=== PATIENT | male | born 1945 | race Caucasian/White ===

== ENCOUNTER 2017-02-11 10:36 | Inpatient (IN) | payer OTHER ==
[~2017-02-11] VITALS: Ht 185.4 cm; Wt 106.1 kg
[2017-02-11 10:44] VITALS: BP 148/86
[2017-02-11 11:29] LABS: URINE BILIRUBIN NEGATIVE (Negative); URINE BLOOD 1+ (Negative); URINE CLARITY CLEAR; URINE COLOR YELLOW; URINE GLUCOSE-RANDOM* NEGATIVE (Negative); URINE KETONES NEGATIVE (Negative); URINE LEUKOCYTES-REFLEX TRACE (Negative); URINE NITRITE-REFLEX POSITIVE (Negative); URINE PROTEIN (DIPSTICK) TRACE (Negative)
[2017-02-11 11:31] LABS: HEMOGLOBIN 13.1 gm/dL (14.0-18.0); MCH 31.9 pg (26.0-34.0); MCHC 34.5 g/dL (28.0-37.0); MCV 92.4 fL (80.0-100.0); PLATELET COUNT 190 thou/uL (150-400); RBC 4.12 mil/uL (4.50-6.00); RDW 14.3 % (10.5-14.5); WBC 12.7 thou/uL (4.0-11.0)
[2017-02-11] MEDS ORDERED: MIRALAX17 GM PO (11:36)
[2017-02-11] MEDS ORDERED: PRINIVIL20 M1 PO (11:37)
[2017-02-11 11:40] LABS: BACTERIA-REFLEX >30 Many /HPF (None Seen); CASTS None Seen /LPF (None Seen); CRYSTALS None Seen /LPF (None Seen); SQUAMOUS None Seen /LPF (0-3)
[2017-02-11 11:42] LABS: URINE RBC 3-10 Few /HPF (0-2); URINE WBC-REFLEX 6-15 Few /HPF (0-5)
[2017-02-11 11:44] LABS: CALCIUM 9.2 mg/dL (8.5-10.1); CREATININE 1.1 mg/dL (0.7-1.3)
[2017-02-11 12:17] LABS: ABSOLUTE NEUTROPHILS 9.9 thou/uL (1.4-8.2); METAMYELOCYTES 1 %
[2017-02-11 18:42] VITALS: BP 146/74
[2017-02-11 20:00] VITALS: BP 145/60
[2017-02-11 20:50] VITALS: BP 178/71
[2017-02-12 03:43] VITALS: BP 160/58
[2017-02-12 06:20] LABS: HEMATOCRIT 33.5 % (42.0-52.0); HEMOGLOBIN 11.5 gm/dL (14.0-18.0); MCH 31.5 pg (26.0-34.0); MCHC 34.2 g/dL (28.0-37.0); MCV 92.3 fL (80.0-100.0); PLATELET COUNT 217 thou/uL (150-400); RBC 3.63 mil/uL (4.50-6.00); RDW 14.5 % (10.5-14.5); WBC 11.3 thou/uL (4.0-11.0)
[2017-02-12 06:32] LABS: CALCIUM 8.1 mg/dL (8.5-10.1); CREATININE 1.1 mg/dL (0.7-1.3); POTASSIUM 3.2 mmol/L (3.5-5.1)
[2017-02-12 07:40] VITALS: BP 150/79
[2017-02-12 07:56] VITALS: BP 139/86
[2017-02-12 07:59] LABS: ABSOLUTE NEUTROPHILS 8.9 thou/uL (1.4-8.2); ANISOCYTOSIS 1+; METAMYELOCYTES 3 %; POLYCHROMASIA OCCASIONAL
[2017-02-12 15:34] VITALS: BP 126/62
[2017-02-12 20:00] VITALS: BP 147/75
[2017-02-13 04:30] VITALS: BP 159/86
[2017-02-13 06:39] LABS: HEMATOCRIT 34.4 % (42.0-52.0); HEMOGLOBIN 11.9 gm/dL (14.0-18.0); MCH 32.1 pg (26.0-34.0); MCHC 34.5 g/dL (28.0-37.0); PLATELET COUNT 256 thou/uL (150-400); RBC 3.69 mil/uL (4.50-6.00); RDW 14.1 % (10.5-14.5); WBC 9.7 thou/uL (4.0-11.0)
[2017-02-13 07:00] LABS: CALCIUM 8.2 mg/dL (8.5-10.1); POTASSIUM 3.6 mmol/L (3.5-5.1)
[2017-02-13 07:34] VITALS: BP 177/81
[2017-02-13 09:46] LABS: ABSOLUTE NEUTROPHILS 6.2 thou/uL (1.4-8.2); ATYPICAL LYMPHS 2 %; METAMYELOCYTES 4 %; MYELOCYTES 1 %
[2017-02-13 09:47] LABS: ANISOCYTOSIS SLIGHT; POLYCHROMASIA OCCASIONAL
[2017-02-13 16:43] VITALS: BP 157/87
[2017-02-13] MEDS ORDERED: KEFLEX500 M1 PO (17:53)
[2017-02-13 18:07] VITALS: BP 157/87
== END 2017-02-13 18:47 | disposition home or self-care (01) | DRG 872 ==
LOC: ER 10:36 → 4E 12:30 → EROBS 12:30 → 4E 20:00
PROVIDERS: Emergency Medicine; Family Medicine
DX: A41.9 Sepsis, unspecified organism (principal); N39.0 Urinary tract infection, site not specified; I10 Essential (primary) hypertension; K59.09 Other constipation; E87.6 Hypokalemia; Z79.899 Other long term (current) drug therapy
CPT/HCPCS: 10783

== ENCOUNTER → 2017-06-10 | Outpatient (CLI) | payer OTHER ==
[~2017-06-10] MED LIST: KEFLEX500 M1 PO; MIRALAX17 GM PO; PRINIVIL20 M1 PO
== END ==
LOC: RAD 15:44
DX: M84.311 Stress fracture, right shoulder (principal); M75.81 Other shoulder lesions, right shoulder; Z91.81 History of falling

== ENCOUNTER 2021-02-14 12:24 | Emergency (ER) | payer OTHER ==
[2021-02-14 13:44] VITALS: BP 125/65
[2021-02-14] MEDS ORDERED: ZPAK PO (15:04)
== END 2021-02-14 15:16 | disposition home or self-care (01) ==
LOC: ER 12:24
DX: U07.1 COVID-19 (principal); I10 Essential (primary) hypertension; Z79.899 Other long term (current) drug therapy